=== PATIENT | male | born 1975 | race Caucasian/White ===

== ENCOUNTER 2021-03-19 14:15 | Emergency (ER) | payer BC ==
[2021-03-19] MEDS ORDERED: predniSONE 20 MG Tab PO STA (15:13)
[2021-03-19] MEDS ORDERED: Sodium Chloride 0.9% 1,000 ML IV SCH (15:15)
[2021-03-19 15:44] LABS: BASE EXCESS VENOUS,POC 2 mmol/L (-2 - 3+); PCO2 VENOUS,POC 32 mmHg (41-51); PH VENOUS,POC 7.48 pH Units (7.32-7.43)
--- NOTE | 2021-03-19 15:46 | EDM.PDOC ---
ED HPI GENERAL MEDICAL PROBLEM - General Chief Complaint: Respiratory Problem Stated Complaint: COVID Time Seen by Provider: 03/19/21 14:20 Source of Information: Reports: Patient History Limitations: Reports: No Limitations - History of Present Illness INITIAL COMMENTS - FREE TEXT/NARRATIVE: Patient presented to the ED because of sore throat and dyspnea. He was diagnosed with Covid yesterday and today he is hypoxemic with oxygen saturation of 83 % on RA. He had fever,chills,lost of appetite, body ache, weakness 7-10 days prior to him being diagnosed of Covid. He is otherwise healthy and is not taking any medications. 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) - Related Data Allergies Allergy/AdvReac Type Severity Reaction Status Date / Time No Known Allergies Allergy Verified 03/19/21 14:26 ED ROS GENERAL - Review of Systems Review Of Systems: See Below Constitutional: Reports: Fever, Chills, Malaise, Weakness, Fatigue HEENT: Reports: No Symptoms Respiratory: Reports: Shortness of Breath, Cough Cardiovascular: Reports: No Symptoms Endocrine: Reports: No Symptoms GI/Abdominal: Reports: No Symptoms : Reports: No Symptoms Musculoskeletal: Reports: No Symptoms Skin: Reports: No Symptoms Neurological: Reports: No Symptoms Psychiatric: Reports: No Symptoms Hematologic/Lymphatic: Reports: No Symptoms Immunologic: Reports: No Symptoms ED EXAM, GENERAL - Physical Exam Exam: See Below Exam Limited By: No Limitations General Appearance: Alert, No Apparent Distress Eye Exam: Bilateral Eye: PERRL Ears: Normal External Exam, Normal Canal Nose: Normal Inspection, Normal Mucosa, No Blood Throat/Mouth: Normal Inspection, Normal Lips, Normal Teeth, Normal Oropharynx, Normal Voice Head: Atraumatic, Normocephalic Neck: Normal Inspection, Supple, Non-Tender, Full Range of Motion Respiratory/Chest: No Respiratory Distress, Lungs Clear, Normal Breath Sounds, No Accessory Muscle Use, Chest Non-Tender Cardiovascular: Normal Peripheral Pulses, Regular Rate, Rhythm, No Edema, No Gallop, No JVD, No Murmur, No Rub GI/Abdominal: Normal Bowel Sounds, Soft, Non-Tender, No Organomegaly, No Distention, No Abnormal Bruit, No Mass Back Exam: Normal Inspection, Full Range of Motion Extremities: Normal Inspection, Normal Range of Motion, Non-Tender, No Pedal Edema Neurological: Alert, Oriented, CN II-XII Intact, Normal Cognition, Normal Gait, Normal Reflexes, No Motor/Sensory Deficits Course - Vital Signs Text/Narrative:: Lab/CXR result was reviewed and discussed with patient NS 1 L bolus O2 VNC @ 2-4 LPM Prednisone 40 mg PO x1 Last Recorded V/S: Last Vital Signs Temp 36.9 C 03/19/21 14:20 Pulse 114 H 03/19/21 14:20 Resp 28 H 03/19/21 14:20 BP 131/81 03/19/21 14:20 Pulse Ox 93 L 03/19/21 19:40 - Orders/Labs/Meds Orders: Active Orders 24 hr Category Date Time Status Ang Chest [CT] Stat Exams 03/19/21 15:54 Taken Labs: Laboratory Tests 03/19/21 03/19/21 03/19/21 Range/Units 15:05 15:05 15:05 WBC 4.3 (3.2-10.1) x10-3/uL RBC 5.18 (3.90-5.90) x10(6)uL Hgb 15.3 (12.9-17.7) g/dL Hct 45.1 (38.3-50.1) % MCV 87.2 (80.8-98.7) fL MCH 29.6 (27.0-33.3) pg MCHC 34.0 (28.7-35.3) g/dL RDW 12.8 (12.4-15.0) % Plt Count 171 (117-477) x10(3)uL MPV 8.9 (6.7-11.0) fL Neut % (Auto) 73.1 H (40.3-71.8) % Lymph % (Auto) 15.6 L (15.8-45.3) % Carson % (Auto) 10.7 (5.5-15.2) % Eos % (Auto) 0.1 (0.1-6.8) % Baso % (Auto) 0.5 (0.3-3.8) % Neut # (Auto) 3.1 (1.7-6.9) x10-3/uL Lymph # (Auto) 0.7 (0.5-4.5) x10-3/uL Carson # (Auto) 0.5 (0.0-1.2) x10-3/uL Eos # (Auto) 0.0 (0.0-0.6) x10-3/uL Baso # (Auto) 0.0 (0.0-0.3) x10-3/uL D-Dimer, Quantitative 1.75 H (0.0-0.59) mg/LFEU POC VBG pH (7.32-7.43) pH Units POC VBG pCO2 (41-51) mmHg POC VBG HCO3 (22-29) mmol/L VBG Base Excess (-2 - 3+) mmol/L O2 Delivery Device Oxygen Flow Rate LPM Sodium 132 L (135-145) mmol/L Potassium 3.8 (3.5-5.3) mmol/L Chloride 95 L (100-110) mmol/L Carbon Dioxide 27 (21-32) mmol/L BUN 20 H (7-18) mg/dL Creatinine 1.3 (0.70-1.30) mg/dL Est Cr Clr Drug Dosing 77.93 mL/min Estimated GFR (MDRD) 59 L (>60) BUN/Creatinine Ratio 15.4 (9-20) Glucose 125 H (80-116) mg/dL Calcium 8.0 L (8.6-10.2) mg/dL Total Bilirubin 0.6 (0.1-1.3) mg/dL AST 79 H (5-25) IU/L ALT 35 (12-36) U/L Alkaline Phosphatase 30 L (56-112) IU/L Troponin I (4.0-60.3) pg/mL NT-Pro-B Natriuret Pep (<=125) pg/mL Total Protein 7.0 (6.0-8.0) g/dL Albumin 3.1 L (3.5-5.2) g/dL Globulin 3.9 g/dL Albumin/Globulin Ratio 0.8 03/19/21 03/19/21 Range/Units 15:05 15:38 WBC (3.2-10.1) x10-3/uL RBC (3.90-5.90) x10(6)uL Hgb (12.9-17.7) g/dL Hct (38.3-50.1) % MCV (80.8-98.7) fL MCH (27.0-33.3) pg MCHC (28.7-35.3) g/dL RDW (12.4-15.0) % Plt Count (117-477) x10(3)uL MPV (6.7-11.0) fL Neut % (Auto) (40.3-71.8) % Lymph % (Auto) (15.8-45.3) % Carson % (Auto) (5.5-15.2) % Eos % (Auto) (0.1-6.8) % Baso % (Auto) (0.3-3.8) % Neut # (Auto) (1.7-6.9) x10-3/uL Lymph # (Auto) (0.5-4.5) x10-3/uL Carson # (Auto) (0.0-1.2) x10-3/uL Eos # (Auto) (0.0-0.6) x10-3/uL Baso # (Auto) (0.0-0.3) x10-3/uL D-Dimer, Quantitative (0.0-0.59) mg/LFEU POC VBG pH 7.48 H (7.32-7.43) pH Units POC VBG pCO2 32 L (41-51) mmHg POC VBG HCO3 24 (22-29) mmol/L VBG Base Excess 2 (-2 - 3+) mmol/L O2 Delivery Device Nasal cannula Oxygen Flow Rate 0 LPM Sodium (135-145) mmol/L Potassium (3.5-5.3) mmol/L Chloride (100-110) mmol/L Carbon Dioxide (21-32) mmol/L BUN (7-18) mg/dL Creatinine (0.70-1.30) mg/dL Est Cr Clr Drug Dosing mL/min Estimated GFR (MDRD) (>60) BUN/Creatinine Ratio (9-20) Glucose (80-116) mg/dL Calcium (8.6-10.2) mg/dL Total Bilirubin (0.1-1.3) mg/dL AST (5-25) IU/L ALT (12-36) U/L Alkaline Phosphatase (56-112) IU/L Troponin I 15.4 (4.0-60.3) pg/mL NT-Pro-B Natriuret Pep 100 (<=125) pg/mL Total Protein (6.0-8.0) g/dL Albumin (3.5-5.2) g/dL Globulin g/dL Albumin/Globulin Ratio Meds: Medications Discontinued Medications Generic Name Dose Route Start Last Admin Trade Name Placido PRN Reason Stop Dose Admin Sodium Chloride 1,000 mls @ 999 mls/hr 03/19/21 15:15 03/19/21 15:20 Normal Saline IV 999 mls/hr ASDIRECTED KEISHA Administration Iopamidol 85 ml 03/19/21 16:03 03/19/21 16:27 Iopamidol 755 Mg/Ml 100 Ml Bottle IV 03/19/21 16:04 85 ml . DIRECTED ONE Administration Prednisone 40 mg 03/19/21 15:13 03/19/21 15:20 Prednisone 20 Mg Tab PO 03/19/21 15:14 40 mg NOW STA Administration Departure - Departure Time of Disposition: 19:10 Disposition: Home, Self-Care 01 Condition: Good Clinical Impression: Hypoxemia, Pneumonia due to COVID-19 virus, COVID-19 virus infection - Discharge Information Instructions: 10 Things You Can Do to Manage Your COVID-19 Symptoms at Home - [facility] (10/25/2020) Referrals: PCP,None [Primary Care Provider] - Forms: ED Department Discharge Additional Instructions: Please read discharge instructions about Covid infection Drink 2 liters of water daily Zofran ODT 4 mg every 4 hours as needed for nausea Take ibuprofen 899 mg with tylenol 1000 mg every 8 hours as needed for fever,pain Take Vitamin C,D,Zinc daily Use your oxygen as instructed Follow up as needed Sepsis Event Note (ED) - Evaluation Sepsis Screening Result: Possible Sepsis Risk - Focused Exam Vital Signs: Vital Signs Pulse Ox 03/19/21 19:40 93 L - My Orders Last 24 Hours: My Active Orders 03/19/21 15:54 Ang Chest [CT] Stat - Assessment/Plan Last 24 Hours: My Active Orders 03/19/21 15:54 Ang Chest [CT] Stat
[2021-03-19] MEDS ORDERED: Iopamidol 755 Mg/ML 100 ML Bottle IV ONE (16:03)
== END 2021-03-19 20:30 | disposition home or self-care (01) ==
LOC: FB.ED 14:15
DX: U07.1 COVID-19 (principal); J12.82 Pneumonia due to coronavirus disease 2019; R09.02 Hypoxemia
CPT/HCPCS: 36415; 71275; 80053; 83880; 84484; 85025; 85379; 94150; 99285-25; J7030; J7512; Q9967